=== PATIENT | female | born 1980 | race Caucasian/White ===

== ENCOUNTER → 2019-04-15 | Outpatient (CLI) | payer BC ==
[~2019-04-15] MED LIST: BENADRYL25 MG PO; CALCIUM CARBONATE PO; NO HOME MEDICATIONS; PRENATAL VITAMI1 TA5 PO
== END ==
LOC: MC.RAD 12:56
DX: N64.52 Nipple discharge (principal)
CPT/HCPCS: G0279

== ENCOUNTER 2021-09-27 07:45 | Day surgery (SDC) | payer BC ==
[~2021-09-27] VITALS: Ht 177.8 cm; Wt 79.1 kg
[2021-09-27] MEDS ORDERED: ADDERALL XR20 MG PO (08:36)
[2021-09-27] MEDS ORDERED: CELEXA40 MG PO (08:37)
[2021-09-27] MEDS ORDERED: WELLBUTRIN XL150 MG PO (08:37)
[2021-09-27 09:35] VITALS: BP 111/70; PULSE 75; TEMP 97.4
[2021-09-27 09:45] VITALS: BP 110/80; PULSE 70
[2021-09-27 10:00] VITALS: BP 117/82; PULSE 66
[2021-09-27 10:15] VITALS: BP 115/87; PULSE 66
--- NOTE | 2021-09-27 10:30 | NUR ---
0935 Pt returns from endo procedure via cart and RN assist to [facility] [place] [facility]. Pt ambulates from cart to recliner with RN assist. Monitors on and alarms set. Call light within reach. Report received from REEMA Mcneal. Pt alert and oriented. Pt requests water and saltines. Pt denies any pain or nausea. Pt drowsy and desiring to rest. 1000 Pt taking food and drink well. No complications noted. 1026 Discharge instructions given to pt. All questions answered to her satisfaction. Handed to pt are a thank you card and discharge information. 1030 Pt transferred out of the hospital via wheelchair and this RN assist, to private vehicle driven by family.
[2021-09-27 16:47] VITALS: BP 121/83; PULSE 79; TEMP 98.4
== END 2021-09-27 10:30 | disposition home or self-care (01) ==
LOC: SDCO 07:45
DX: K62.89 Other specified diseases of anus and rectum (principal); K60.1 Chronic anal fissure; R19.5 Other fecal abnormalities; R19.4 Change in bowel habit; Z86.010 Personal history of colon polyps; Z86.16 Personal history of COVID-19
CPT/HCPCS: J2704; J7120

== ENCOUNTER → 2023-05-12 | Outpatient (CLI) | payer BC ==
[~2023-05-12] MED LIST changes: +ADDERALL XR20 MG PO; +CELEXA40 MG PO; +WELLBUTRIN XL150 MG PO
== END ==
LOC: CANSCHCLI → MC.RAD 14:15
DX: Z12.31 Encounter for screening mammogram for malignant neoplasm of breast (principal)